=== PATIENT | male | born 1995 | race Caucasian/White ===

== ENCOUNTER 2018-01-05 17:23 | Emergency (ER) | payer SELFPAY ==
[~2018-01-05] VITALS: Ht 188 cm; Wt 72.6 kg
[2018-01-05 17:29] VITALS: BP 128/89
== END 2018-01-05 21:17 | disposition left against medical advice (07) ==
LOC: ER 17:23
DX: M25.532 Pain in left wrist (principal); Z53.21 Procedure and treatment not carried out due to patient leaving prior to being seen by health care provider